=== PATIENT | male | born 1960 | race Two or more races ===

== ENCOUNTER 2019-10-20 09:48 | Emergency (ER) | payer MEDICAID ==
[~2019-10-20] VITALS: Ht 180.3 cm; Wt 109.0 kg
[2019-10-20 10:54] VITALS: BP 137/72
[2019-10-20] MEDS ORDERED: KETOROLAC 60MG/2ML VIAL IM ONE (11:30)
== END 2019-10-20 11:51 | disposition home or self-care (01) ==
LOC: ER 09:48
DX: G89.29 Other chronic pain (principal); M25.552 Pain in left hip; M25.551 Pain in right hip; I11.9 Hypertensive heart disease without heart failure; I25.10 Atherosclerotic heart disease of native coronary artery without angina pectoris; Z98.890 Other specified postprocedural states
CPT/HCPCS: 96372; 99283; J1885

== ENCOUNTER 2021-01-13 08:02 | Emergency (ER) | payer MEDICAID ==
[~2021-01-13] VITALS: Ht 180.3 cm; Wt 105.0 kg
[2021-01-13] MEDS ORDERED: ONDANSETRON 4MG ODT PO ONE (09:00)
[2021-01-13 09:01] VITALS: BP 160/96
[2021-01-13] MEDS ORDERED: ONDA4TAB5 MT (09:18)
== END 2021-01-13 09:26 | disposition home or self-care (01) ==
LOC: ER 08:39
DX: I16.0 Hypertensive urgency (principal); R11.0 Nausea
CPT/HCPCS: 99283; Q0162

== ENCOUNTER 2022-12-24 14:23 | Emergency (ER) | payer MEDICAID, OTHER ==
[~2022-12-24] VITALS: Ht 180.3 cm; Wt 114.0 kg
[~2022-12-24 14:23] MED LIST: ONDA4TAB5 MT
[2022-12-24 14:41] VITALS: BP 141/95
[2022-12-24 15:37] LABS: BASOPHILS % 0.2 % (0.0-2.0); EOSINOPHILS % 3.3 % (0.0-5.0); HEMATOCRIT. 44.8 % (42.0-52.0); HEMOGLOBIN. 14.8 g/dL (14.0-18.0); LYMPHOCYTES % 22.7 % (20.0-50.0); MEAN CORPUSCULAR HEMOGLOBIN 26.6 pg (28.0-32.0); MEAN CORPUSCULAR VOLUME 80.8 fL (80.0-94.0); MEAN PLATELET VOLUME 7.8 fl (7.4-10.4); MONOCYTES % 8.8 % (2.0-8.0); PLATELET 217 x1000/uL (130-400); RED BLOOD CELL COUNT 5.54 mill/uL (4.7-6.1); RED CELL DISTRIBUTION WIDTH 17.8 % (11.6-14.6)
[2022-12-24 15:48] LABS: CHLORIDE 106 mEq/L (98-107)
== END 2022-12-24 20:58 | disposition left against medical advice (07) ==
LOC: ER 14:23
DX: Z53.21 Procedure and treatment not carried out due to patient leaving prior to being seen by health care provider (principal)
CPT/HCPCS: 36415; 71045; 80053; 85025; 99281

== ENCOUNTER 2023-04-06 21:26 | Emergency (ER) | payer OTHER ==
[~2023-04-06] VITALS: Ht 180.3 cm; Wt 127.0 kg
[2023-04-06 21:43] VITALS: BP 132/72; O2SAT 96
[2023-04-07] MEDS ORDERED: ACETAMINOPHEN 325MG TABLET PO ONE (00:15)
[2023-04-07] MEDS ORDERED: LIDO700A15 TP (00:27)
[2023-04-07] MEDS ORDERED: ACET-2708 MT (00:27)
[2023-04-07 00:37] VITALS: PULSE 77; RESP 18; TEMP 98.1
== END 2023-04-07 00:38 | disposition home or self-care (01) ==
LOC: ER 21:26
DX: M54.50 Low back pain, unspecified (principal); E78.00 Pure hypercholesterolemia, unspecified; I10 Essential (primary) hypertension
CPT/HCPCS: 99283

== ENCOUNTER 2024-03-19 17:15 | Emergency (ER) | payer BC, MEDICAID ==
[~2024-03-19] VITALS: Ht 177.8 cm; Wt 75.0 kg
[~2024-03-19 17:15] MED LIST changes: +ACET-2708 MT; +LIDO700A15 TP
[2024-03-19 17:24] VITALS: O2SAT 98
[2024-03-19 18:03] LABS: CALCIUM 9.2 mg/dL (8.7-10.4); CARBON DIOXIDE 26 mEq/L (21-32); CHLORIDE 107 mEq/L (98-107); POTASSIUM 3.5 mEq/L (3.5-5.1); SODIUM 139 mEq/L (136-145)
[2024-03-19 18:05] LABS: INR 1.2; PARTIAL THROMBOPLASTIN TIME < 21.0 sec (23.4-31.0); PROTHROMBIN TIME 12.7 sec (9.6-11.0)
[2024-03-19 18:08] LABS: CREATININE 0.8 mg/dL (0.6-1.3); GLUCOSE 173 mg/dL (70-105); UREA NITROGEN BLOOD 11 mg/dL (9-23)
[2024-03-19 18:09] LABS: ALANINE AMINOTRANSFERASE 31 IU/L (10-49); ASPARTATE AMINOTRANSFERASE 28 IU/L (<34)
[2024-03-19 18:10] LABS: BILIRUBIN DIRECT 0.1 mg/dL (<=3.0); BILIRUBIN TOTAL 0.3 mg/dL (0.1-1.0); PROTEIN TOTAL 6.6 g/dL (6.0-8.3)
[2024-03-19 18:12] LABS: ETHANOL BLOOD < 10 mg/dL (<10); TROPONIN I HIGH SENSITIVITY 117 ng/L (3.0-53)
[2024-03-19 18:46] LABS: BASOPHILS % 0.5 % (0.0-2.0); EOSINOPHILS % 3.5 % (0.0-5.0); HEMATOCRIT. 43.1 % (42.0-52.0); HEMOGLOBIN. 14.2 g/dL (14.0-18.0); LYMPHOCYTES % 15.7 % (20.0-50.0); MEAN CORPUSCULAR HEMOGLOBIN 27.1 pg (28.0-32.0); MEAN CORPUSCULAR HGB CONC 32.9 g/dL (31.0-37.0); MEAN CORPUSCULAR VOLUME 82.3 fL (80.0-94.0); MONOCYTES % 6.7 % (2.0-8.0); NEUTROPHILS % 73.6 % (40.0-76.0); PLATELET 229 x1000/uL (130-400); RED BLOOD CELL COUNT 5.24 mill/uL (4.7-6.1); RED CELL DISTRIBUTION WIDTH 17.1 % (11.6-14.6); WHITE BLOOD COUNT 8.3 x1000/uL (4.5-11.0)
[2024-03-19 21:31] LABS: TROPONIN I HIGH SENSITIVITY 156 ng/L (3.0-53)
[2024-03-20] MEDS ORDERED: LISI40TA13 MT (05:18)
[2024-03-20] MEDS ORDERED: METF-873 MT (05:18)
[2024-03-20] MEDS ORDERED: CYCL10TA21 MT (05:18)
[2024-03-20] MEDS ORDERED: SIMV-46 MT (05:18)
[2024-03-20] MEDS ORDERED: ASPI-1497 MT (05:18)
[2024-03-20] MEDS ORDERED: METO100T16 MT (05:18)
[2024-03-20] MEDS ORDERED: CLOP75TA33 MT (05:18)
[2024-03-20] MEDS ORDERED: ACET167L14 PO (05:18)
[2024-03-20] MEDS: CLONIDINE 0.1MG TABLET PO NR (06:20)
[2024-03-20] MEDS ORDERED: CLONIDINE 0.1MG TABLET PO PRN (06:30)
[2024-03-20] MEDS ORDERED: DEXTROSE 50% WATER 50ML SYRINGE IV PRN (06:30)
[2024-03-20] MEDS ORDERED: ONDANSETRON HCL 4MG/2ML INJ IV PRN (06:30)
[2024-03-20] MEDS ORDERED: ACETAMINOPHEN 500MG TABLET PO PRN (06:30)
[2024-03-20 08:00] VITALS: BP 112/74; PULSE 66; RESP 18; TEMP 97.9
[2024-03-20] MEDS: INSULIN LISPRO (MEDIUM DOSE) 100 UNITS/ML SUBCUT SCH (08:20)
[2024-03-20] MEDS: LIDOCAINE 5% PATCH TOP SCH (09:00)
[2024-03-20] MEDS: ASPIRIN 81MG TABLET PO SCH (09:26)
[2024-03-20] MEDS: METFORMIN HCL 500MG TABLET PO SCH (09:26)
[2024-03-20] MEDS: ISOSORBIDE MONONITRATE 60MG TABLET SR 24HR PO SCH (09:27)
[2024-03-20] MEDS: METOPROLOL TARTRATE 50MG TABLET PO SCH (09:28)
[2024-03-20] MEDS: LISINOPRIL 40MG TABLET PO SCH (09:29)
[2024-03-20] MEDS: ENOXAPARIN 40MG/0.4ML SYR SUBCUT SCH (09:29)
[2024-03-20] MEDS: BLOOD SUGAR DIAGNOSTIC STRIP TEST SCH (09:40)
[2024-03-20 12:00] VITALS: BP 112/74; PULSE 66; RESP 18; TEMP 97.9
[2024-03-20] MEDS ORDERED: ATORVASTATIN CALCIUM 20MG TABLET PO SCH (21:00)
== END 2024-03-20 09:09 | disposition admitted as inpatient to this hospital (09) ==
LOC: ER 17:15 → EDBEDREQTM 19:37 → EDBEDREQ 19:37 → 7EST 03-20 10:53 → UNDOADMIN 03-20 10:53 → UNDODISIN 03-20 11:56
DX: I21.4 Non-ST elevation (NSTEMI) myocardial infarction (principal); I10 Essential (primary) hypertension; E78.00 Pure hypercholesterolemia, unspecified; I25.2 Old myocardial infarction; Z79.899 Other long term (current) drug therapy
CPT/HCPCS: 80076; 80048; 80320; 83880; 83690; 85025; 85610; 85730; 84484; 36415 ×2; 71045; 93005; 99291; 82962; 96372; J1650; G0480